=== PATIENT | male | born 2005 | race African-American/Black ===

== ENCOUNTER 2025-03-20 14:12 | Emergency (ER) | payer MEDICAID ==
[~2025-03-20] VITALS: Ht 185.4 cm; Wt 55.0 kg
[2025-03-20 14:21] VITALS: O2SAT 100
[2025-03-20] MEDS: PREDNISONE 20MG TABLET PO ONE (16:17)
[2025-03-20 16:20] VITALS: BP 136/93; PULSE 60; RESP 16; TEMP 36.9; O2SAT 100
[2025-03-20] MEDS ORDERED: IBUP-2028 MT (16:25)
[2025-03-20] MEDS ORDERED: ACET-2708 MT (16:25)
== END 2025-03-20 16:21 | disposition home or self-care (01) ==
LOC: ER 14:12
DX: S02.32XA Fracture of orbital floor, left side, initial encounter for closed fracture (principal); S02.2XXA Fracture of nasal bones, initial encounter for closed fracture; H50.632 Inferior rectus muscle entrapment, left eye; H11.32 Conjunctival hemorrhage, left eye; Z79.899 Other long term (current) drug therapy; Y09 Assault by unspecified means; Y93.89 Activity, other specified; Y92.89 Other specified places as the place of occurrence of the external cause; Y99.8 Other external cause status
CPT/HCPCS: 99283; J7512